=== PATIENT | male | born 2000 | race Caucasian/White ===

== ENCOUNTER 2020-08-26 23:29 | Emergency (ER) | payer OTHER ==
[~2020-08-26] VITALS: Ht 188 cm; Wt 97.0 kg
[2020-08-26] MEDS ORDERED: IBUP200C25 PO (23:40)
[2020-08-27] MEDS ORDERED: METAXALONE 800 MG TABLET PO ONE (03:15)
--- NOTE | 2020-08-27 04:31 | REPVR ---
PROCEDURE INFORMATION: Exam: XR Lumbosacral Spine Exam date and time: 08/27/2020 3:14 AM Age: 19 years old Clinical indication: Low back pain; Additional info: Traumatic back pain TECHNIQUE: Imaging protocol: XR of the lumbosacral spine. Views: 4 or 5 views. COMPARISON: No relevant prior studies available. FINDINGS: Bones/joints: Normal. No acute fracture. Normal alignment. Soft tissues: Unremarkable. IMPRESSION: Negative lumbar spine. Electronically signed by: Osbaldo Patel On 08/27/2020 04:32:15 AM
[2020-08-27] MEDS ORDERED: SKEL800T97 PO (04:35)
[2020-08-27 04:47] VITALS: BP 118/55
== END 2020-08-27 04:53 | disposition home or self-care (01) ==
LOC: M ED 23:29
DX: S39.012A Strain of muscle, fascia and tendon of lower back, initial encounter (principal); Y93.B3 Activity, free weights; Y92.9 Unspecified place or not applicable; Y99.9 Unspecified external cause status

== ENCOUNTER → 2020-10-23 | Outpatient (CLI) | payer OTHER ==
[~2020-10-23] MED LIST: IBUP200C25 PO; SKEL800T97 PO
[2020-10-23 17:42] LABS: APPEARANCE, URINE CLEAR (CLEAR); BACTERIA, URINE AUTO NEGATIVE (NEGATIVE); BILIRUBIN, URINE AUTO NEGATIVE (NEGATIVE); BLOOD, URINE BLOOD NEGATIVE (NEGATIVE); COLOR, URINE STRAW (YELLOW); GLUCOSE, URINE (UA) AUTO NEGATIVE (NEGATIVE); KETONE, URINE AUTO NEGATIVE (NEGATIVE); LEUKOCYTE ESTERASE, URINE AUTO NEGATIVE (NEGATIVE); NITRITE, URINE AUTO NEGATIVE (NEGATIVE); PROTEIN, URINE AUTO NEGATIVE (NEGATIVE); RBC, URINE AUTO 1 /HPF (0-3); SPECIFIC GRAVITY URINE AUTO 1.003 (1.002-1.035); SQUAMOUS EPITHELIAL CELL UR AU 0 /HPF (0-6); UROBILINOGEN, URINE AUTO 0.2 mg/dL (0.0-2.0); WBC, URINE AUTO 0 /HPF (0-3)
[2020-10-23 18:08] LABS: BLOOD UREA NITROGEN 13 MG/DL (7-18); CARBON DIOXIDE LEVEL 30 MEQ/L (21-32); CHLORIDE LEVEL 102 MEQ/L (98-107); CREATININE FOR GFR 1.18 MG/DL (0.70-1.30); GLOMERULAR FILTRATION RATE > 60.0 (>60); GLUCOSE, FASTING 94 MG/DL (70-100); POTASSIUM SERUM 4.5 MEQ/L (3.5-5.1); SODIUM LEVEL 139 MEQ/L (136-145)
[2020-10-23 18:16] LABS: HEMATOCRIT 48.7 % (42.0-52.0); HEMOGLOBIN 16.6 g/dl (13.5-17.5); MEAN CORPUSCULAR HEMOGLOBIN 29.4 pg (27.0-33.0); MEAN CORPUSCULAR HGB CONC 34.1 g/dl (32.0-36.5); MEAN CORPUSCULAR VOLUME 86.3 fl (80.0-96.0); PLATELET COUNT, AUTOMATED 192 10^3/uL (150-450); RED BLOOD COUNT 5.64 10^6/uL (4.30-6.10); WHITE BLOOD COUNT 5.2 10^3/uL (4.0-10.0)
[2020-10-23 18:37] LABS: INR 0.99; PROTHROMBIN TIME 13.3 SECONDS (12.5-14.3)
== END ==
LOC: M LAB 16:41
PROVIDERS: ATTEND Nurse Practitioner Women's Health
DX: N47.1 Phimosis (principal)

== ENCOUNTER 2020-10-25 06:16 | Day surgery (SDC) | payer OTHER ==
[~2020-10-25] VITALS: Ht 188 cm; Wt 95.3 kg
[~2020-10-25 06:16] MED LIST changes: +LR 1,000 ML IV ONE; +ceFAZolin SOD 2 GM in IV 1 EA IV ONE
[2020-10-25] MEDS ORDERED: fentaNYL 100 MCG/2 ML INJECTION (J3010) As Ordered ONE ×2 (06:42→09:34)
[2020-10-25] MEDS ORDERED: MIDAZOLAM INJ 2MG/2ML VIAL (J2250 PER 1MG) As Ordered ONE (06:42)
[2020-10-25] MEDS ORDERED: dexameTHASONE 4 MG/ML 1ML VIAL (J1100 PER 1MG) As Ordered ONE (06:43)
[2020-10-25] MEDS ORDERED: LIDOCAINE 2% 100MG/5ML SDV (FOR ANES.) As Ordered ONE (06:43)
[2020-10-25] MEDS ORDERED: propofoL 200 MG/20 ML VIAL As Ordered ONE (06:43)
[2020-10-25] MEDS ORDERED: ONDANSETRON 4MG/2ML VIAL As Ordered ONE (06:43)
[2020-10-25] MEDS ORDERED: ACETAMINOPHEN 1000MG 100ML IV BTL (OFIRMEV) (J0131 PER 10MG) As Ordered ONE (06:46)
[2020-10-25] MEDS ORDERED: BACITRACIN OINTMENT 30GM TUBE As Ordered ONE (07:10)
--- NOTE | 2020-10-25 09:24 | ROOPDOC ---
[facility] Report Of Operation Report of Operation DATE OF PROCEDURE: 10/25/20 PREPROCEDURE DIAGNOSIS: Phimosis. POSTPROCEDURE DIAGNOSIS: Phimosis. PROCEDURE: Circumcision. SURGEON: Dr. Christin Cm [employer] ASSOCIATE: None. ANESTHESIA: General. OPERATIVE INDICATIONS: This is a 19-year-old male with phimosis. He was brought to the operating room today for the above listed procedure. DESCRIPTION OF PROCEDURE: The patient was brought to the operating room and general anesthesia was administered. Prophylactic antibiotics were infused. He was then placed in the supine position and was prepped and draped in the usual sterile fashion. At this point, circumcising incisions were made at the level of the coronal sulcus with the foreskin completely retracted over the glans and also with the foreskin retracted down off of the glans. The skin in between the incisions was then excised using electrocautery. Once this was done, any areas of bleeding were controlled using the coagulation current. Once satisfied with hemostasis, the skin of the penile shaft was reapproximated to the glans using interrupted #3-0 chromic sutures. Once all the sutures were placed, the operative area was cleaned and then dressings were applied, including a Ana and a Coban dressing. This marked the conclusion of the procedure. The patient was then awakened from anesthesia and transported to the recovery room in stable condition. Estimated blood loss 15 mL. Complications: None. Specimens: Foreskin. Plan: The patient will remove his dressings in the shower in a few days. He will followup in the clinic in 2-3 weeks for a postoperative visit. CHRISTIN CM MD Oct 25, 2020 09:24
[2020-10-25] MEDS ORDERED: OXYC1TAB23 PO (09:26)
[2020-10-25] MEDS: fentaNYL 100 MCG/2 ML INJECTION (J3010) IV PRN ×2 (09:40→09:51)
[2020-10-25] MEDS ORDERED: oxyCODONE 5MG TAB PO PRN (09:50)
[2020-10-25] MEDS ORDERED: ONDANSETRON 4MG/2ML VIAL IV PRN (09:50)
[2020-10-25] MEDS ORDERED: LR 1,000 ML IV SCH (09:50)
[2020-10-25] MEDS ORDERED: PERCOCET 5MG/325MG TAB PO PRN (09:55)
[2020-10-25 11:48] VITALS: BP 128/59
== END 2020-10-25 11:50 | disposition home or self-care (01) ==
LOC: M SDC 06:16
PROVIDERS: ATTEND Urology
DX: N47.1 Phimosis (principal); B08.1 Molluscum contagiosum
CPT/HCPCS: 54161; 88304; J0131; J0690; J1100; J2250; J2405; J3010

== ENCOUNTER 2021-01-16 10:44 | Emergency (ER) | payer OTHER ==
[~2021-01-16] VITALS: Ht 188 cm; Wt 93.9 kg
[~2021-01-16 10:44] MED LIST changes: -LR 1,000 ML IV ONE; +OXYC1TAB23 PO; -ceFAZolin SOD 2 GM in IV 1 EA IV ONE
[2021-01-16 14:19] LABS: BASO % 0.5 % (0.0-1.0); EOS # 0.1 10^3/uL (0.0-0.5); EOS % 1.5 % (0.0-3.0); HEMATOCRIT 50.8 % (42.0-52.0); HEMOGLOBIN 17.5 g/dl (13.5-17.5); LYMPH # 1.9 10^3/uL (1.5-5.0); LYMPH % 32.7 % (24.0-44.0); MEAN CORPUSCULAR HEMOGLOBIN 30.2 pg (27.0-33.0); MEAN CORPUSCULAR HGB CONC 34.4 g/dl (32.0-36.5); MEAN CORPUSCULAR VOLUME 87.6 fl (80.0-96.0); MONO % 17.4 % (2.0-8.0); NEUTROPHILS # 2.8 10^3/uL (1.5-8.5); NEUTROPHILS % 47.7 % (36.0-66.0); PLATELET COUNT, AUTOMATED 156 10^3/uL (150-450); WHITE BLOOD COUNT 5.8 10^3/uL (4.0-10.0)
--- NOTE | 2021-01-16 15:08 | REP ---
INDICATION: chest pain, sob. COMPARISON: None. TECHNIQUE: Single portable AP view of the chest was performed. FINDINGS: There is no acute infiltrate or pulmonary edema. Lungs are clear. The heart is not significantly enlarged. The mediastinal silhouette is unremarkable. The visualized osseous structures are intact. IMPRESSION: No acute pulmonary disease. <Electronically signed by Moncho Nazario > 01/16/21 [id number]
[2021-01-16 16:17] VITALS: BP 127/58
--- NOTE | 2021-01-17 11:37 | ECGEPIP ---
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 Order Number: [id number] Reading MD: Rachelle Serna Measurements Intervals [place] Rate: 59 P: 115 [place]: 140 QRS: 121 QRSD: 100 T: 106 QT: 402 QTc: 397 Interpretive Statements Suspect arm lead reversal Sinus bradycardia RSR' or QR pattern in V1 suggests right ventricular conduction delay no prior Electronically Signed on 01-17-2021 11:37:15 EDT by Rachelle Serna
== END 2021-01-16 16:47 | disposition home or self-care (01) ==
LOC: M ED 10:44
DX: U07.1 COVID-19 (principal)